=== PATIENT | female | born 1990 | race Caucasian/White ===

== ENCOUNTER → 2020-04-09 | Outpatient (CLI) | payer OTHER | LOC: LAB 07:35 | PROVIDERS: ATTEND Obstetrics & Gynecology | DX: Z34.90 Encounter for supervision of normal pregnancy, unspecified, unspecified trimester (principal); Z3A.00 Weeks of gestation of pregnancy not specified | CPT/HCPCS: 36415; 82950; 84443 ==

== ENCOUNTER → 2020-06-28 | Outpatient (CLI) | payer OTHER ==
[~2020-06-28] MED LIST: ACHD5005 PO; ASPI-999 PO; DCS100C PO; DIBU30OI TOP; IBUP-844 PO; LEVO50TA6 PO; PREN-142 PO
== END ==
LOC: LABNPT 08:49
PROVIDERS: ATTEND Obstetrics & Gynecology
DX: Z36.9 Encounter for antenatal screening, unspecified (principal); Z20.828 Contact with and (suspected) exposure to other viral communicable diseases
CPT/HCPCS: 87635

== ENCOUNTER 2020-07-01 20:25 | Inpatient (IN) | payer OTHER ==
[~2020-07-01] VITALS: Ht 172.7 cm; Wt 85.4 kg
--- NOTE | 2020-07-01 20:30 | NUR ---
ALEXANDER SANDERSON presented to unit via ambulation from home/ED, accompanied by , for INDUCTION. ALEXANDER SANDERSON weighed, gowned, voided, and to bed. EFHM and TOCO applied, VS taken. ALEXANDER SANDERSON oriented to bed controls, call light, TV, heat, and A/C controls.
[2020-07-01 20:50] VITALS: BP 136/81
[2020-07-01] MEDS ORDERED: LACTATED RINGERS 1,000 ML IV SCH (21:10)
[2020-07-01] MEDS ORDERED: MISOPROSTOL 100 MCG (CYTOTEC) TAB PO ONE (21:15)
[2020-07-01] MEDS ORDERED: TERBUTALINE INJ 1 MG/ML (BRETHINE) AMP SC PRN (21:15)
[2020-07-01] MEDS: CATHETER FLUSH 10 ML SYR IV SCH (21:21)
[2020-07-01 21:31] LABS: BASOPHILS % (AUTO) 0 % (0-10); EOSINOPHILS # (AUTO) 0.1 10^3/uL (0.0-0.3); EOSINOPHILS % (AUTO) 1 % (0-10); HEMATOCRIT 36 % (35-52); HEMOGLOBIN 12.2 g/dL (11.5-16.0); LYMPHOCYTES # (AUTO) 2.3 10^3/uL (1.0-4.0); LYMPHOCYTES % (AUTO) 19 % (12-44); MEAN CORPUSCULAR HEMOGLOBIN 33 pg (25-34); MEAN CORPUSCULAR HGB CONC 34 g/dL (32-36); MEAN CORPUSCULAR VOLUME 98 fL (80-99); MEAN PLATELET VOLUME 10.3 fL (9.0-12.2); MONOCYTES # (AUTO) 0.9 10^3/uL (0.0-1.0); MONOCYTES % (AUTO) 8 % (0-12); NEUTROPHILS # (AUTO) 8.3 10^3/uL (1.8-7.8); NEUTROPHILS % (AUTO) 70 % (42-75); PLATELET COUNT 194 10^3/uL (130-400); WHITE BLOOD COUNT 11.8 10^3/uL (4.3-11.0)
[2020-07-01 21:35] LABS: BILIRUBIN,URINE NEGATIVE (NEGATIVE); CLARITY,URINE CLEAR; COLOR,URINE YELLOW; GLUCOSE, URINE (UA) NEGATIVE (NEGATIVE); KETONES,URINE NEGATIVE (NEGATIVE); LEUKOCYTE ESTERASE ,URINE TRACE (NEGATIVE); NITRITE,URINE NEGATIVE (NEGATIVE); PROTEIN,URINE NEGATIVE (NEGATIVE)
[2020-07-01] MEDS ORDERED: ASPI-999 PO (21:48)
[2020-07-01] MEDS ORDERED: LEVO50TA6 PO (21:48)
[2020-07-01] MEDS ORDERED: PREN-142 PO (21:48)
[2020-07-01 21:59] LABS: BACTERIA,URINE MODERATE /HPF
[2020-07-01 22:01] VITALS: BP 122/70
[2020-07-01] MEDS: D5 LR IV SOLUTION 1,000 ML IV SCH (22:01)
[2020-07-01 23:04] VITALS: BP 142/86
[2020-07-02] VITALS (49 sets, daily range): BP systolic 98–155; BP diastolic 55–84
[2020-07-02] MEDS: MISOPROSTOL 100 MCG (CYTOTEC) TAB PO SCH ×2 (01:35→05:56)
[2020-07-02] MEDS: CATHETER FLUSH 10 ML SYR IV SCH (05:43)
[2020-07-02] MEDS: D5 LR IV SOLUTION 1,000 ML IV SCH (05:47)
[2020-07-02] MEDS ORDERED: OXYTOCIN PRE-MIX DRIP 500 ML IV SCH (05:55)
--- NOTE | 2020-07-02 07:34 | History & Physical-OB ---
OB - Chief Complaint & HPI Date/Time Date of Admission: Date of Admission: Jul 01, 2020 at 20:25 Date seen by a Provider: Jul 02, 2020 Time Seen by a Provider: 07:25 Chief Complaint/History OB-Reason for Admission/Chief: Induction of Labor Hx : 3 Hx Para: 1 Expected Date of Delivery: Jul 04, 2020 Gestational Age in Weeks: 39 Gestational Age in Days: 4 Admission Nurse Assessment Rev: Yes History of Labs O pos Antibody neg RI RPR NR HBsAg NR HIV NR GC neg GBS neg Allergies and Home Medications Allergies Coded Allergies: No Known Drug Allergies (Unverified , 07/01/20) Home Medications Aspirin 81 Mg Tab.chew, 81 MG PO DAILY, (Reported) Levothyroxine Sodium 50 Mcg Tablet, 50 MCG PO DAILY, (Reported) Vit No.124/Iron/FA 1 Each Tablet, 1 EACH PO DAILY, (Reported) Patient Home Medication List Home Medication List Reviewed: Yes OB - History Hx of Present Care: Yes Ultrasounds: Normal mid trimester US Obstetrical Complications: None Medical Complications: None Delivery History Adverse Rxn to Tranfusion: No Patient Past Medical History n/a Social History/Family History Recent Infectious Disease Expo: No Alcohol Use: Denies Use Recreational Drug Use: No Immunizations Hepatitis A: No Hepatitis B: Yes Date of Influenza Vaccine: May 07, 2020 OB - Admission Exam Physical Exam Vitals: Vital Signs 07/02/20 07/02/20 00:02 05:01 Temp 36.4 Pulse 62 Resp 18 B/P (MAP) 98/55 (69) O2 Delivery Room Air HEENT: NCAT Heart: Rhythm Normal Lungs: Clear Abdomen: Gravid Extremities: Normal Reflexes: Normal Cervical Dilatation: 2cm Effacement: 75% Station: -1 Membranes: Intact Heart Rate: 130's Accelerations: Accelerations Present Decelerations: No Decelerations Short Term Variability: Present Professional Services Specialist Variability: Average (6-25) Contractions on Admission: < 5 Minutes Apart Intensity: Mild Labs Laboratory Tests Test 07/01/20 20:35 07/01/20 20:45 Range/Units Urine Color YELLOW Urine Clarity CLEAR Urine pH 7.0 5-9 Urine Specific [place] 1.010 L 1.016-1.022 Urine Protein NEGATIVE NEGATIVE Urine Glucose (UA) NEGATIVE NEGATIVE Urine Ketones NEGATIVE NEGATIVE Urine Nitrite NEGATIVE NEGATIVE Urine Bilirubin NEGATIVE NEGATIVE Urine Urobilinogen 0.2 < = 1.0 MG/DL Urine Leukocyte Esterase TRACE H NEGATIVE Urine RBC (Auto) NEGATIVE NEGATIVE Urine RBC NONE /HPF Urine WBC 2-5 /HPF Urine Squamous Epithelial Cells 5-10 /HPF Urine Crystals NONE /LPF Urine Bacteria MODERATE H /HPF Urine Casts NONE /LPF Urine Mucus SMALL H /LPF Urine Culture Indicated YES White Blood Count 11.8 H 4.3-11.0 10^3/uL Red Blood Count 3.70 L 3.80-5.11 10^6/uL Hemoglobin 12.2 11.5-16.0 g/dL Hematocrit 36 35-52 % Mean Corpuscular Volume 98 80-99 fL Mean Corpuscular Hemoglobin 33 25-34 pg Mean Corpuscular Hemoglobin Concent 34 32-36 g/dL Red Cell Distribution Width 12.7 10.0-14.5 % Platelet Count 194 130-400 10^3/uL Mean Platelet Volume 10.3 9.0-12.2 fL Immature Granulocyte % (Auto) 1 % Neutrophils (%) (Auto) 70 42-75 % Lymphocytes (%) (Auto) 19 12-44 % Monocytes (%) (Auto) 8 0-12 % Eosinophils (%) (Auto) 1 0-10 % Basophils (%) (Auto) 0 0-10 % Neutrophils # (Auto) 8.3 H 1.8-7.8 10^3/uL Lymphocytes # (Auto) 2.3 1.0-4.0 10^3/uL Monocytes # (Auto) 0.9 0.0-1.0 10^3/uL Eosinophils # (Auto) 0.1 0.0-0.3 10^3/uL Basophils # (Auto) 0.0 0.0-0.1 10^3/uL Immature Granulocyte # (Auto) 0.2 H 0.0-0.1 10^3/uL OB - Assessment/Plan/Diagnosis Assessment Assessment: induction of labor Admission Dx 30 yo @ 39 weeks Induction of labor GBS neg Admission Status: Inpatient Order (span 2 midnights) Reason for Inpatient Admission: Induction of labor at term Plan Plan: Induction Induction Method: per Misoprostol Protocol KVNG CONDE DO Jul 02, 2020 07:34
--- NOTE | 2020-07-02 07:48 | NUR ---
Anesthesia notified of epidural request.
[2020-07-02] MEDS ORDERED: fentaNYL 2 mcg/ml BUPIVA 0.125 100 ML ONE (07:50)
[2020-07-02] MEDS ORDERED: BUPIVACAINE 0.25% 30 ML (SENSORCAINE) VIAL ONE (08:21)
[2020-07-02] MEDS ORDERED: LIDOCAINE PF 2% 5 ML (XYLOCAINE) VIAL ONE (08:21)
[2020-07-02] MEDS ORDERED: LACTATED RINGERS 1,000 ML IV SCH (08:30)
[2020-07-02] MEDS ORDERED: NALOXONE 0.4 MG/ML 1 ML (NARCAN) VIAL IV PRN ×2 (08:30)
[2020-07-02] MEDS ORDERED: diphenhydrAMINE 50 MG/ML INJ (BENADRYL) IV PRN (08:30)
[2020-07-02] MEDS ORDERED: METOCLOPRAMIDE INJ 10 MG/2 ML (REGLAN) IV PRN (08:30)
[2020-07-02] MEDS ORDERED: ONDANSETRON 4 MG/2 ML (SDV) Z0FRAN IV PRN (08:30)
[2020-07-02] MEDS ORDERED: EPIDURAL (fentaNYL 2 MCG/ML BUPIVA 0.125%)100 ML BAG EPI SCH (08:30)
[2020-07-02] MEDS: OXYTOCIN PRE-MIX DRIP 500 ML IV SCH ×2 (11:50→13:53)
[2020-07-02] MEDS ORDERED: TETANUS,DIPTH,PERTUSS P/F (BOOSTRIX) 0.5 ML VIAL IM ONE (12:15)
[2020-07-02] MEDS ORDERED: DIBUCAINE (NUPERCAINAL) 1% OINT 30 GM TOP PRN (12:15)
[2020-07-02] MEDS ORDERED: HYDROcodone/APAP 5 MG/325 MG (LORTAB) TAB PO PRN (12:15)
[2020-07-02] MEDS ORDERED: MEASLES,MUMPS,RUBELLA 1 EA INJ SQ ONE (12:15)
[2020-07-02] MEDS ORDERED: WITCH HAZEL(TUCKS) 40 EA JAR TOP PRN (12:15)
[2020-07-02] MEDS ORDERED: BENZOCAINE/MENTHOL (DERMOPLAST) 60 ML CAN TP PRN (12:15)
--- NOTE | 2020-07-02 12:26 | OB Labor & Delivery Record ---
L&D History Date of Service Date of Service: Jul 02, 2020 History Expected Date of Delivery: Jul 04, 2020 Gestational Age in Weeks: 39 Hx : 3 Hx Para: 1 Complications Events: Routine care Operative Indications (Cesarea: N/A-Vaginal Delivery Intrapartal Events: None L&D Stage1 Stage One Onset of Labor - Date: Jul 02, 2020 Monitors and Tracing Monitor Mode: External Heart Rate: 135 Station: -2 Vital Signs VS - Last 72 Hours, by Label 07/01/20 07/01/20 07/01/20 07/01/20 20:50 20:50 22:01 23:04 Temp 36.0 36.0 Pulse 76 76 69 69 Resp 18 18 18 18 B/P (MAP) 136/81 (99) 122/70 (87) 142/86 (104) Pulse Ox 100 100 O2 Delivery Room Air Room Air Room Air Room Air 07/02/20 07/02/20 07/02/20 07/02/20 00:02 01:03 02:00 03:03 Temp 36.4 Pulse 62 63 67 65 Resp 18 18 18 18 B/P (MAP) 131/71 (91) 119/65 (83) 119/74 (89) 100/59 (73) O2 Delivery Room Air Room Air Room Air Room Air 07/02/20 07/02/20 07/02/20 07/02/20 04:01 05:01 06:03 06:15 Temp 36.6 Pulse 71 62 62 55 Resp 18 18 18 18 B/P (MAP) 99/59 (72) 98/55 (69) 118/74 (89) 118/78 (91) O2 Delivery Room Air Room Air Room Air Room Air 07/02/20 07/02/20 07/02/20 07/02/20 06:30 06:45 07:00 07:30 Temp 36.5 Pulse 69 63 64 71 Resp 18 18 18 18 B/P (MAP) 119/82 (94) 123/83 (96) 126/83 (97) 133/83 (100) O2 Delivery Room Air Room Air Room Air Room Air 07/02/20 07/02/20 07/02/20 07/02/20 07:45 08:17 08:25 08:28 Pulse 59 62 71 71 Resp 18 18 18 18 B/P (MAP) 155/68 (97) 138/64 (88) 123/73 (90) 131/76 (94) Pulse Ox 98 98 O2 Delivery Room Air Room Air Room Air Room Air 07/02/20 07/02/20 07/02/20 07/02/20 08:31 08:33 08:36 08:39 Temp 36.5 Pulse 70 71 71 69 Resp 18 18 18 18 B/P (MAP) 129/75 (93) 130/75 (93) 122/67 (85) 124/65 (84) Pulse Ox 98 98 97 97 O2 Delivery Room Air Room Air Room Air Room Air 07/02/20 07/02/20 07/02/20 07/02/20 08:42 08:45 08:48 08:51 Pulse 69 71 64 65 Resp 18 18 18 18 B/P (MAP) 121/69 (86) 108/73 (85) 117/73 (88) 121/76 (91) Pulse Ox 97 97 97 97 O2 Delivery Room Air Room Air Room Air Room Air 07/02/20 07/02/20 07/02/20 07/02/20 08:54 08:57 09:00 09:03 Pulse 68 60 61 65 Resp 18 18 18 18 B/P (MAP) 116/72 (87) 120/71 (87) 121/71 (88) 118/75 (89) Pulse Ox 97 97 99 99 O2 Delivery Room Air Room Air Room Air Room Air Rupture of Membranes Amniotic Membrane Rupture Time: 0725 Progress/Notes Patient admitted for induction of labor electively, and was 1 cm dilatated. Misoprostol given x 2 PO doses overnight. She was found to be 2-3 cm this AM. AROM and Pitocin started. Epidural placed, patient progressed to complete and without any discomfort or knowing she was delivering. L&D Stage2 Monitors and Tracing Monitor Mode: External Heart Rate: 135 Monitor Accelerations: Uniform Monitor Decelerations: None Ux Visual Designer Variability: Average (6-10) Short Term Variability: Present Position: Right Occiput Anterior Presentation: Vertex Cord Descript/Complications Cord Vessel Description: 3 Vessels Complications Infant delivered with Brigitte LAMAR present, I arrived at time for repair and delivery of placenta Delivery Type Delivery Method: Spontaneous Vaginal Anterior Shoulder: Left Episiotomy/Perineal Laceration Laceraction(s)/Extensions: Yes Episiotomy Description: Perineal Extension/lac, 1st degree Degree (describe repair) 1st degree perineal laceration repaired using 3-0 rapide in usual fashion Condition of Delivery 1 minute Comment: 9 5 minute Comment: 9 Notes Live female weight pending Condition of Infant Condition of : Living Exam: No Observed Abnormalities Resuscitation Resuscitation: N/A - Spontaneous Resp L&D Stage3 Stage Three Stage III Date: Jul 02, 2020 Pictocin Pitocin Administration mu/min: 4 Pitocin ml/hr: 4 Pitocin Administration Comment: 30 mu Pitocin wide open at delivery of placenta Placenta Delivery Placenta Delivery: Spontaneous Delivery Summary Summary Estimated blood loss (mL): 350 Attending at delivery: Kvng Conde DO Condition of Delivery Examined: Cervix Examined, Uterus Explored Post Hemorrhage: No Condition of Mother stable Condition of Infant (s) stable KVNG CONDE DO Jul 02, 2020 12:26 pm
[2020-07-02] MEDS ORDERED: DIBU30OI TOP (12:37)
[2020-07-02] MEDS ORDERED: IBUP-844 PO (12:37)
[2020-07-02] MEDS ORDERED: ACHD5005 PO (12:37)
[2020-07-02] MEDS ORDERED: DCS100C PO (12:37)
[2020-07-02] MEDS ORDERED: IBUPROFEN 600 MG (MOTRIN) TAB PO ONE (12:55)
[2020-07-02] MEDS: IBUPROFEN 600 MG (MOTRIN) TAB PO SCH ×2 (12:58→19:33)
[2020-07-02] MEDS ORDERED: CATHETER FLUSH 10 ML SYR IV SCH (14:00)
--- NOTE | 2020-07-02 15:15 | NUR ---
Pericare performed. Fresh vpad and underwear on along with tucks and dermoplast to perineum. Pt assisted to standing position and to wheelchair. Pt denies urge to void at this time. Pt wheeled to PP room 310 via wheelchair accompanied by RN, S.O. and personal belongings. Infant to follow accompanied by nursery RN. Pt and S.O. oriented to room and call light. packet explained, dinner menu provided. Pt denies needs or concerns at this time.
[2020-07-02] MEDS: DOCUSATE SODIUM 100 MG (COLACE) CAP PO SCH (20:40)
[2020-07-03 01:05] VITALS: BP 123/73
[2020-07-03] MEDS: IBUPROFEN 600 MG (MOTRIN) TAB PO SCH ×2 (01:09→10:09)
[2020-07-03 05:10] VITALS: BP 115/69
[2020-07-03 05:40] LABS: BASOPHILS % (AUTO) 0 % (0-10); EOSINOPHILS # (AUTO) 0.1 10^3/uL (0.0-0.3); EOSINOPHILS % (AUTO) 1 % (0-10); HEMATOCRIT 35 % (35-52); HEMOGLOBIN 11.6 g/dL (11.5-16.0); LYMPHOCYTES # (AUTO) 2.3 10^3/uL (1.0-4.0); LYMPHOCYTES % (AUTO) 21 % (12-44); MEAN CORPUSCULAR HEMOGLOBIN 34 pg (25-34); MEAN CORPUSCULAR HGB CONC 34 g/dL (32-36); MEAN CORPUSCULAR VOLUME 101 fL (80-99); MEAN PLATELET VOLUME 10.1 fL (9.0-12.2); MONOCYTES # (AUTO) 0.8 10^3/uL (0.0-1.0); MONOCYTES % (AUTO) 7 % (0-12); NEUTROPHILS # (AUTO) 7.7 10^3/uL (1.8-7.8); NEUTROPHILS % (AUTO) 70 % (42-75); PLATELET COUNT 141 10^3/uL (130-400)
[2020-07-03] MEDS ORDERED: PRENATAL VITAMIN 1 EA TAB PO SCH (07:00)
--- NOTE | 2020-07-03 08:08 | Postpartum Progress Note ---
Note Note Day # 1 Subjective: Patient is without complaints. Ambulating, voiding. Tolerating a regular diet without nausea or vomiting. Normal lochia. Pain is well controlled with oral pain medications. Objective: Physical Exam: General - Alert and oriented, no apparent distress Abdomen - Soft, appropriately tender to palpation, non-distended, fundus firm at umbilicus Extremities - no edema, negative Mckenna's bilaterally Assessment: PPD 1 NVD Plan: Routine care. Encourage breast feeding. Encourage ambulation. Ferrous sulfate supplementation. Plan for discharge today Vitals - Labs Vital Signs - I&O Vital Signs Date Time Temp Pulse Resp B/P (MAP) Pulse Ox O2 Delivery O2 Flow Rate FiO2 07/03/20 05:10 36.6 68 18 115/69 (84) 98 Room Air 07/03/20 01:05 36.4 56 20 123/73 (90) 96 Room Air 07/02/20 20:52 36.1 58 18 144/84 (104) 97 Room Air 07/02/20 17:06 36.6 73 18 122/68 (86) 98 Room Air 07/02/20 13:17 66 18 117/69 (85) Room Air 07/02/20 13:02 63 18 118/78 (91) Room Air 07/02/20 12:47 36.5 66 18 120/80 (93) Room Air 07/02/20 12:32 63 18 113/75 (88) Room Air 07/02/20 12:17 56 18 121/76 (91) Room Air 07/02/20 12:02 57 18 124/70 (88) Room Air 07/02/20 11:47 62 18 124/65 (84) Room Air 07/02/20 11:32 74 18 131/78 (95) Room Air 07/02/20 11:05 61 18 111/67 (82) Room Air 07/02/20 10:50 64 18 113/65 (81) Room Air 07/02/20 10:35 63 18 111/60 (77) Room Air 07/02/20 10:20 62 18 118/61 (80) Room Air 07/02/20 10:05 36.3 69 18 117/59 (78) 98 Room Air 07/02/20 09:50 53 18 107/59 (75) 98 Room Air 07/02/20 09:30 61 18 114/66 (82) 98 Room Air 07/02/20 09:23 65 18 117/69 (85) 97 Room Air 07/02/20 09:18 62 18 112/63 (79) 97 Room Air 07/02/20 09:13 62 18 116/68 (84) 98 Room Air 07/02/20 09:06 72 18 121/75 (90) 100 Room Air 07/02/20 09:03 65 18 118/75 (89) 99 Room Air 07/02/20 09:00 61 18 121/71 (88) 99 Room Air 07/02/20 08:57 60 18 120/71 (87) 97 Room Air 07/02/20 08:54 68 18 116/72 (87) 97 Room Air 07/02/20 08:51 65 18 121/76 (91) 97 Room Air 07/02/20 08:48 64 18 117/73 (88) 97 Room Air 07/02/20 08:45 71 18 108/73 (85) 97 Room Air 07/02/20 08:42 69 18 121/69 (86) 97 Room Air 07/02/20 08:39 69 18 124/65 (84) 97 Room Air 07/02/20 08:36 71 18 122/67 (85) 97 Room Air 07/02/20 08:33 71 18 130/75 (93) 98 Room Air 07/02/20 08:31 36.5 70 18 129/75 (93) 98 Room Air 07/02/20 08:28 71 18 131/76 (94) 98 Room Air 07/02/20 08:25 71 18 123/73 (90) 98 Room Air 07/02/20 08:17 62 18 138/64 (88) Room Air I & O 07/03/20 07:00 Intake Total 2800 ml Balance 2800 ml Labs Laboratory Tests 07/03/20 05:25: White Blood Count 11.0, Red Blood Count 3.44L, Hemoglobin 11.6, Hematocrit 35, Mean Corpuscular Volume 101H, Mean Corpuscular Hemoglobin 34, Mean Corpuscular Hemoglobin Concent 34, Red Cell Distribution Width 12.6, Platelet Count 141, Mean Platelet Volume 10.1, Immature Granulocyte % (Auto) 1, Neutrophils (%) (Auto) 70, Lymphocytes (%) (Auto) 21, Monocytes (%) (Auto) 7, Eosinophils (%) (Auto) 1, Basophils (%) (Auto) 0, Neutrophils # (Auto) 7.7, Lymphocytes # (Auto) 2.3, Monocytes # (Auto) 0.8, Eosinophils # (Auto) 0.1, Basophils # (Auto) 0.0, Immature Granulocyte # (Auto) 0.1 Microbiology 07/01/20 Urine Culture - Final, Complete NO GROWTH KVNG CONDE DO Jul 03, 2020 08:08
[2020-07-03] MEDS ORDERED: FERROUS SULF 325 MG (IRON) TAB PO SCH (09:00)
--- NOTE | 2020-07-03 09:16 | Anesthesia-Regional Post-Op ---
Regional Patient Condition Mental Status: Alert, Oriented x3 Circulation: Same as Pre-Op Headache: Absent Sensation: Full Recovery Motor Block: Absent Post Op Complications Complications None Follow Up Care/Instructions Patient Instructions None needed. Anesthesia/Patient Condition Patient is doing well, no complaints, stable vital signs, no apparent adverse anesthesia problems. No complications reported per nursing. JACQUELYN FINN CRNA Jul 03, 2020 09:16
[2020-07-03] MEDS: DOCUSATE SODIUM 100 MG (COLACE) CAP PO SCH (10:09)
[2020-07-03 10:15] VITALS: BP 131/74
--- NOTE | 2020-07-03 10:15 | NUR ---
Dismissal instructions given, verbalizes understanding. reviewed follow up appointment and medications. signature page signed, placed on chart.
--- NOTE | 2020-07-03 12:45 | NUR ---
stork meal served.
--- NOTE | 2020-07-03 14:10 | NUR ---
pt ambulated to private vehicle with this RN, and @ side. secured in rear facing car seat. pt stable with no sx's of distress noted.
== END 2020-07-03 14:10 | disposition home or self-care (01) | DRG 807 ==
LOC: LDRP 20:25
PROVIDERS: ADMIT Obstetrics & Gynecology; ATTEND Obstetrics & Gynecology
PROC: 10E0XZZ Delivery of Products of Conception, External Approach (ICD-10-PCS; principal; 2020-07-02)
PROC: 0HQ9XZZ Repair Perineum Skin, External Approach (ICD-10-PCS; 2020-07-02)
DX: O70.0 First degree perineal laceration during delivery (principal); Z37.0 Single live birth; Z3A.39 39 weeks gestation of pregnancy
CPT/HCPCS: 36415; 81000; 85025; 86850; 86900; 86901; 87088

== ENCOUNTER → 2021-11-28 | Outpatient (CLI) | payer OTHER ==
[~2021-11-28] MED LIST changes: -DCS100C PO; +DOCU-239 PO
== END ==
LOC: LABNPT 10:55
PROVIDERS: ATTEND Nurse Practitioner Women's Health
DX: Z34.02 Encounter for supervision of normal first pregnancy, second trimester (principal); Z36.9 Encounter for antenatal screening, unspecified; Z3A.00 Weeks of gestation of pregnancy not specified
CPT/HCPCS: 82105; 82677; 84702; 86336

== ENCOUNTER → 2021-12-19 | Outpatient (CLI) | payer OTHER, MEDICAID ==
--- NOTE | 2021-12-19 13:09 | Diagnostic Imaging Report ---
INDICATION: , anatomic survey TECHNIQUE: Multiple real-time grayscale images were obtained over the gravid uterus. COMPARISON: None FINDINGS: There is a single live intrauterine gestation in variable presentation. The cervix measures 3.3 cm in length, with no evidence of funneling or endocervical fluid. The heart rate measures 144 BPM. The amniotic fluid appears subjectively normal. A vertical pocket seen measuring 3.5 cm. The placenta is anterior without evidence of previa. The profile is seen. The upper and lower spine is seen. The ventricles are seen and appear normal. The nose and lips are seen. The cerebellum is seen. The cisterna magna measures 7 to 8 mm. A four-chamber heart is seen. The right and left ventricular outflow tracks are seen. The stomach is seen. The kidneys are seen. The bilateral upper extremities are seen. The diaphragm is seen. The cord insertion is seen. The bladder is seen. 2 umbilical arteries are present. 2 lower extremities are present. Biometrical measurements are as follows: Biparietal 4.59 cm, age 20 weeks 0 days. Head circumference 17.49 cm, age 20 weeks 1 days. Abdominal circumference 15.44 cm, age 20 weeks 5 days. Femur length 3.51 cm, age 21 weeks 1 days. Sonographic estimate age: 20 weeks 4 days. Sonographic estimated date of delivery: 05/04/2022. Estimated Weight: 372 gm (+/- 55 gm). LMP percentile: 45%. heart rate: 144 beats per minute. number: 1 of 1. IMPRESSION: 1. Single live intrauterine gestation measuring at 20 weeks and 4 days which is within range of the clinical dates. 2. Anatomic survey. No abnormality is seen. The cisterna magna is at the upper limit of normal in size. Dictated by: Dictated on workstation # [id number]
== END ==
LOC: RAD 10:00
PROVIDERS: ATTEND Nurse Practitioner Women's Health
DX: Z34.02 Encounter for supervision of normal first pregnancy, second trimester (principal); Z3A.20 20 weeks gestation of pregnancy
CPT/HCPCS: 76805

== ENCOUNTER 2022-04-23 17:38 | Inpatient (IN) | payer OTHER, MEDICAID ==
[2022-04-23] VITALS (10 sets, daily range): BP systolic 127–144; BP diastolic 77–92
[~2022-04-23] VITALS: Ht 172.7 cm; Wt 85.5 kg
[2022-04-23] MEDS ORDERED: CATHETER FLUSH 10 ML SYR IV PRN (18:00)
[2022-04-23] MEDS ORDERED: NS IV 1000 ML 1,000 ML IV SCH (18:00)
[2022-04-23] MEDS ORDERED: LIDOCAINE/EPI 2% 1:200,00 (XYLOCAINE) 10 ML VIAL INJ PRN (18:00)
[2022-04-23] MEDS ORDERED: NS IV 1000 ML 1,000 ML ONE (18:06)
[2022-04-23 18:33] LABS: BASOPHILS % (AUTO) 0 % (0-10); EOSINOPHILS # (AUTO) 0.1 10^3/uL (0.0-0.3); EOSINOPHILS % (AUTO) 1 % (0-10); HEMATOCRIT 32 % (35-52); HEMOGLOBIN 10.5 g/dL (11.5-16.0); LYMPHOCYTES # (AUTO) 2.4 10^3/uL (1.0-4.0); LYMPHOCYTES % (AUTO) 20 % (12-44); MEAN CORPUSCULAR HEMOGLOBIN 31 pg (25-34); MEAN CORPUSCULAR HGB CONC 33 g/dL (32-36); MEAN CORPUSCULAR VOLUME 94 fL (80-99); MEAN PLATELET VOLUME 10.4 fL (9.0-12.2); MONOCYTES # (AUTO) 0.7 10^3/uL (0.0-1.0); MONOCYTES % (AUTO) 6 % (0-12); NEUTROPHILS # (AUTO) 8.3 10^3/uL (1.8-7.8); NEUTROPHILS % (AUTO) 71 % (42-75); PLATELET COUNT 202 10^3/uL (130-400); WHITE BLOOD COUNT 11.7 10^3/uL (4.3-11.0)
[2022-04-23 18:51] LABS: URINE CREATININE FOR RATIO 61 MG/DL (30-125); URINE PROTEIN FOR RATIO ONLY < 6 MG/DL (6-12)
[2022-04-23 18:55] LABS: ALBUMIN 3.3 GM/DL (3.2-4.5); BILIRUBIN,TOTAL 0.2 MG/DL (0.1-1.0); CREATININE SERUM 0.9 MG/DL (0.60-1.30); POTASSIUM 3.8 MMOL/L (3.6-5.0); TOTAL PROTEIN 6.5 GM/DL (6.4-8.2); URIC ACID 5.5 MG/DL (2.6-7.2)
[2022-04-23] MEDS: D5 LR IV SOLUTION 1,000 ML IV SCH (22:35)
[2022-04-24] VITALS (14 sets, daily range): BP systolic 122–154; BP diastolic 68–92
[2022-04-24] MEDS: D5 LR IV SOLUTION 1,000 ML IV SCH (06:12)
--- NOTE | 2022-04-24 06:59 | History & Physical-OB ---
JORDAN HOWARD 04/24/22 0659: OB - Chief Complaint & HPI Date/Time Date of Admission: Date of Admission: Apr 23, 2022 at 17:38 Date seen by a Provider: Apr 24, 2022 Time Seen by a Provider: 06:53 Chief Complaint/History OB-Reason for Admission/Chief: Induction of Labor Hx : 4 Hx Para: 2 Expected Date of Delivery: May 03, 2022 Gestational Age in Weeks: 38 Gestational Age in Days: 3 History of Labs 32 yo female @38.5 weeks here for induction of labor Rubella non immune O+ HIV- GBS - VDRL- HbsAg - Allergies and Home Medications Allergies Coded Allergies: No Known Drug Allergies (Unverified , 07/01/20) Patient Home Medication List Home Medication List Reviewed: Yes Levothyroxine Sodium (Levothyroxine Sodium) 50 Mcg Tablet, 50 MCG PO DAILY, (Reported) Entered as Reported by: MARIAMA SHERIDAN on 07/01/202147 Last Action: Last Taken Edited Discontinued Medications Dibucaine (Dibucaine) 30 Gm Oint, 0 GM TOP UD PRN for PAIN- SEE INSTRUCTIONS Discontinued Reason: No Longer Taking Prescribed by: KVNG CONDE on 07/02/201236 Last Action: Discontinued Docusate Sodium (Dok) 100 Mg Capsule, 100 MG PO BID Discontinued Reason: No Longer Taking Prescribed by: KVNG CONDE on 07/02/201236 Last Action: Discontinued Hydrocodone/Acetaminophen (Hydrocodone-Acetamin 5-325 mg) 1 Each Tablet, 1 TAB PO Q4H PRN for PAIN-MODERATE (5-7) Discontinued Reason: No Longer Taking Prescribed by: KVNG CONDE on 07/02/201236 Last Action: Discontinued Ibuprofen (Ibu) 600 Mg Tablet, 600 MG PO Q6HR Discontinued Reason: No Longer Taking Prescribed by: KVNG CONDE on 07/02/201236 Last Action: Discontinued Vit No.124/Iron/FA ( Vitamin Tablet) 1 Each Tablet, 1 EACH PO DAILY, (Reported) Discontinued Reason: No Longer Taking Entered as Reported by: MARIAMA SHERIDAN on 07/01/202147 Last Action: Discontinued OB - History Hx of Present Care: Yes Obstetrical Complications: None Medical Complications: None Delivery History Adverse Rxn to Tranfusion: No Patient Past Medical History n/a Immunizations Hepatitis A: No Hepatitis B: Yes OB - Admission Exam Physical Exam Vitals: Vital Signs 04/23/22 04/24/22 04/24/22 18:06 01:00 04:05 Temp 37.4 Pulse 67 Resp 18 B/P (MAP) 128/84 (99) Pulse Ox 100 O2 Delivery Room Air Abdomen: Gravid Extremities: Normal Cervical Dilatation: 3cm Heart Rate: 140's Labs Laboratory Tests Test 04/23/22 18:00 04/23/22 18:20 Range/Units Urine Protein < 6 L 6-12 MG/DL Urine Creatinine 61 30-125 MG/DL Urine Protein/Creatinine Ratio White Blood Count 11.7 H 4.3-11.0 10^3/uL Red Blood Count 3.36 L 3.80-5.11 10^6/uL Hemoglobin 10.5 L 11.5-16.0 g/dL Hematocrit 32 L 35-52 % Mean Corpuscular Volume 94 80-99 fL Mean Corpuscular Hemoglobin 31 25-34 pg Mean Corpuscular Hemoglobin Concent 33 32-36 g/dL Red Cell Distribution Width 12.0 10.0-14.5 % Platelet Count 202 130-400 10^3/uL Mean Platelet Volume 10.4 9.0-12.2 fL Immature Granulocyte % (Auto) 1 % Neutrophils (%) (Auto) 71 42-75 % Lymphocytes (%) (Auto) 20 12-44 % Monocytes (%) (Auto) 6 0-12 % Eosinophils (%) (Auto) 1 0-10 % Basophils (%) (Auto) 0 0-10 % Neutrophils # (Auto) 8.3 H 1.8-7.8 10^3/uL Lymphocytes # (Auto) 2.4 1.0-4.0 10^3/uL Monocytes # (Auto) 0.7 0.0-1.0 10^3/uL Eosinophils # (Auto) 0.1 0.0-0.3 10^3/uL Basophils # (Auto) 0.0 0.0-0.1 10^3/uL Immature Granulocyte # (Auto) 0.2 H 0.0-0.1 10^3/uL Sodium Level 138 135-145 MMOL/L Potassium Level 3.8 3.6-5.0 MMOL/L Chloride Level 105 98-107 MMOL/L Carbon Dioxide Level 20 L 21-32 MMOL/L Anion Gap 13 5-14 MMOL/L Blood Urea Nitrogen 15 7-18 MG/DL Creatinine 0.90 0.60-1.30 MG/DL Estimat Glomerular Filtration Rate 88 BUN/Creatinine Ratio 17 Glucose Level 105 70-105 MG/DL Uric Acid 5.5 2.6-7.2 MG/DL Calcium Level 9.0 8.5-10.1 MG/DL Corrected Calcium 9.6 8.5-10.1 MG/DL Total Bilirubin 0.2 0.1-1.0 MG/DL Aspartate Amino Transf (AST/SGOT) 14 5-34 U/L Alanine Aminotransferase (ALT/SGPT) 13 0-55 U/L Alkaline Phosphatase 118 40-136 U/L Total Protein 6.5 6.4-8.2 GM/DL Albumin 3.3 3.2-4.5 GM/DL OB - Assessment/Plan/Diagnosis Assessment Assessment: induction of labor Admission Dx 32 yo female @38.5 weeks here for induction of labor Admission Status: Inpatient Order (span 2 midnights) Reason for Inpatient Admission: Induction of labor Plan Plan: Induction Induction Method: per Misoprostol Protocol KVNG CONDE DO 04/24/22 0732: Allergies and Home Medications Allergies Coded Allergies: No Known Drug Allergies (Unverified , 07/01/20) Patient Home Medication List Levothyroxine Sodium (Levothyroxine Sodium) 50 Mcg Tablet, 50 MCG PO DAILY, (Reported) Entered as Reported by: MARIAMA SHERIDAN on 07/01/20 9600 Last Action: Last Taken Edited Discontinued Medications Dibucaine (Dibucaine) 30 Gm Oint, 0 GM TOP UD PRN for PAIN- SEE INSTRUCTIONS Discontinued Reason: No Longer Taking Prescribed by: KVNG CONDE on 07/02/20 1237 Last Action: Discontinued Docusate Sodium (Dok) 100 Mg Capsule, 100 MG PO BID Discontinued Reason: No Longer Taking Prescribed by: KVNG CONDE on 07/02/20 1237 Last Action: Discontinued Hydrocodone/Acetaminophen (Hydrocodone-Acetamin 5-325 mg) 1 Each Tablet, 1 TAB PO Q4H PRN for PAIN-MODERATE (5-7) Discontinued Reason: No Longer Taking Prescribed by: KVNG CONDE on 07/02/20 1237 Last Action: Discontinued Ibuprofen (Ibu) 600 Mg Tablet, 600 MG PO Q6HR Discontinued Reason: No Longer Taking Prescribed by: KVNG CONDE on 07/02/20 1237 Last Action: Discontinued Vit No.124/Iron/FA ( Vitamin Tablet) 1 Each Tablet, 1 EACH PO DAILY, (Reported) Discontinued Reason: No Longer Taking Entered as Reported by: MARIAMA SHERIDAN on 07/01/20 2598 Last Action: Discontinued OB - Assessment/Plan/Diagnosis Plan Other Plan Verification and Attestation of Medical Student E/M Service A medical student performed and documented this service in my presence. I reviewed and verified all information documented by the medical student and made modifications to such information, when appropriate. I personally performed the physical exam and medical decision making. Kvng Conde, Apr 24, 2022,07:32 JORDAN HOWARD Apr 24, 2022 06:59 KVNG CONDE DO Apr 24, 2022 07:32
[2022-04-24] MEDS ORDERED: OXYTOCIN PRE-MIX DRIP 500 ML IV ONE (10:26)
[2022-04-24] MEDS ORDERED: OXYTOCIN PRE-MIX DRIP 500 ML IV SCH (10:30)
[2022-04-24] MEDS ORDERED: fentaNYL 2 mcg/ml BUPIVA 0.125 100 ML ONE (11:02)
[2022-04-24] MEDS ORDERED: LACTATED RINGERS 1,000 ML IV ONE (11:02)
[2022-04-24] MEDS ORDERED: diphenhydrAMINE 50 MG/ML INJ (BENADRYL) IV PRN (12:00)
[2022-04-24] MEDS ORDERED: METOCLOPRAMIDE INJ 10 MG/2 ML (REGLAN) IV PRN (12:00)
[2022-04-24] MEDS ORDERED: fentaNYL 2 mcg/ml BUPIVA 0.125 100 ML EPI SCH (12:00)
[2022-04-24] MEDS ORDERED: ONDANSETRON 4 MG/2 ML (SDV) Z0FRAN IV PRN (12:00)
[2022-04-24] MEDS ORDERED: NALOXONE 0.4 MG/ML 1 ML (NARCAN) VIAL IV PRN ×3 (12:00→12:45)
[2022-04-24] MEDS ORDERED: LACTATED RINGERS 1,000 ML IV SCH (12:00)
[2022-04-24] MEDS ORDERED: BUPIVACAINE 0.25% 30 ML (SENSORCAINE) VIAL ONE (12:04)
[2022-04-24] MEDS ORDERED: fentaNYL INJ 100 MCG/2 ML AMP ONE (12:04)
[2022-04-24] MEDS ORDERED: MEASLES,MUMPS,RUBELLA 1 EA INJ SQ ONE (12:45)
[2022-04-24] MEDS ORDERED: BENZOCAINE/MENTHOL (DERMOPLAST) 56 ML CAN TP PRN (12:45)
[2022-04-24] MEDS ORDERED: TETANUS,DIPTH,PERTUSS P/F (BOOSTRIX) 0.5 ML VIAL IM ONE (12:45)
[2022-04-24] MEDS ORDERED: WITCH HAZEL(TUCKS) 40 EA JAR TOP PRN (12:45)
[2022-04-24] MEDS ORDERED: DIBUCAINE 1% OINTMENT 30 GM TUBE TOP PRN (12:45)
[2022-04-24] MEDS ORDERED: BENZ78AE5 TP (12:46)
[2022-04-24] MEDS ORDERED: IBUP-1773 PO (12:46)
--- NOTE | 2022-04-24 12:46 | Discharge Inst-Women's Service ---
Discharge Inst-Women's Serv Depart Medication/Instructions New, Converted or Re-Newed RX: Transmitted to Pharmacy Final Diagnosis PPD 1 NVD Problems Reviewed?: Yes Consults/Follow Up Additional Follow Up: Yes Orders/Referrals Dr. Conde in 6 weeks Activity Activity: Activity as Tolerated Driving Instructions: No Driving for 1 Week NO SMOKING: NO SMOKING Nothing Inside Vagina: No Douching, No [place], No Tampons Diet Discharge Diet: No Restrictions Symptoms to Report to : Bleeding Excessive, Pain Increased, Fever Over 101 Degrees F, Vaginal Bleeding Increase, Questions/Concerns For Any Problems or Questions: Contact Your Physician KVNG CONDE DO Apr 24, 2022 12:45
--- NOTE | 2022-04-24 12:48 | OB Labor & Delivery Record ---
L&D History Date of Service Date of Service: Apr 24, 2022 History Expected Date of Delivery: May 03, 2022 Gestational Age in Weeks: 38 Hx : 4 Hx Para: 2 Complications Events: Routine care Operative Indications (Cesarea: N/A-Vaginal Delivery Intrapartal Events: None L&D Stage1 Stage One Onset of Labor - Date: Apr 24, 2022 Monitors and Tracing Monitor Mode: External Heart Rate: 135 Monitor Accelerations: Uniform Monitor Decelerations: None Station: -1 Decal Applier Variability: Average (6-10) Short Term Variability: Present Presentation: Vertex Vital Signs VS - Last 72 Hours, by Label 04/23/22 04/23/22 04/23/22 04/23/22 18:01 18:06 18:27 18:54 Temp 37.0 37.0 Pulse 87 87 90 89 Resp 18 16 18 18 B/P (MAP) 136/82 (100) 133/80 (97) 133/80 (97) Pulse Ox 100 O2 Delivery Room Air 04/23/22 04/23/22 04/23/22 04/23/22 19:09 19:39 19:57 20:58 Temp 37.0 Pulse 78 74 89 71 Resp 18 18 18 18 B/P (MAP) 133/81 (98) 137/77 (97) 144/92 (109) 138/83 (101) O2 Delivery Room Air Room Air Room Air 04/23/22 04/23/22 04/24/22 04/24/22 22:00 23:00 00:00 01:00 Temp 37.4 Pulse 71 63 67 60 Resp 18 18 18 18 B/P (MAP) 136/84 (101) 127/80 (96) 124/68 (86) 122/87 (99) O2 Delivery Room Air Room Air Room Air Room Air 04/24/22 04/24/22 04/24/22 04/24/22 02:00 03:00 04:05 06:15 Temp 37.4 Pulse 64 69 67 71 Resp 18 18 18 18 B/P (MAP) 135/80 (98) 131/74 (93) 128/84 (99) 135/86 (102) O2 Delivery Room Air Room Air Room Air Room Air 04/24/22 04/24/22 04/24/22 04/24/22 07:31 08:45 10:30 12:01 Temp 37.4 37.0 36.5 37.2 Pulse 71 62 79 63 Resp 18 18 18 20 B/P (MAP) 135/86 (102) 129/81 (97) 154/92 (112) 144/89 (107) Pulse Ox 100 98 O2 Delivery Room Air Room Air Rupture of Membranes Spontaneous Ruture of Membrane: No Amniotic Membrane Rupture Time: 721 Amniotic Membrane Fluid Desc.: Clear Vaginal Bleeding Description: Normal Show Progress/Notes Patient admitted for IOL due to GHTN. Misoprostol given overnight. AROM performed this am followed by pitocin augmentation. She rapidly progressed to complete and + 2 station after epidural placement. L&D Stage2 Stage Two Stage II Date: Apr 24, 2022 Monitors and Tracing Monitor Mode: External Heart Rate: 135 Monitor Accelerations: Uniform Monitor Decelerations: Variable Decal Applier Variability: Average (6-10) Short Term Variability: Present Position: Right Occiput Anterior Presentation: Vertex Cord Descript/Complications Cord Vessel Description: 3 Vessels Delivery Type Infant Delivery Method: Spontaneous Vaginal Anterior Shoulder: Left Episiotomy/Perineal Laceration Laceraction(s)/Extensions: No Condition of Infant Delivery 1 minute Comment: 9 5 minute Comment: 9 Notes Live female infant weight pending. Condition of Infant Condition of : Living Exam: No Observed Abnormalities Resuscitation Resuscitation: N/A - Spontaneous Resp L&D Stage3 Stage Three Stage III Date: Apr 24, 2022 Pictocin Pitocin Administration Comment: 30 mu wide open after delivery of placenta Placenta Delivery Placenta Delivery: Spontaneous Delivery Summary Summary Estimated blood loss (mL): 200 Attending at delivery: Kvng Conde DO Condition of Delivery Examined: Cervix Examined, Uterus Explored Post Hemorrhage: No Condition of Mother stable Condition of (s) stable KVNG CONDE DO Apr 24, 2022 12:48
[2022-04-24] MEDS: OXYTOCIN PRE-MIX DRIP 500 ML IV SCH ×2 (13:15→15:34)
[2022-04-24] MEDS ORDERED: CATHETER FLUSH 10 ML SYR IV SCH (14:00)
[2022-04-24] MEDS ORDERED: IBUPROFEN 600 MG (MOTRIN) TAB PO SCH (16:00)
[2022-04-24] MEDS ORDERED: IBUPROFEN 600 MG (MOTRIN) TAB PO PRN (17:15)
[2022-04-24] MEDS ORDERED: DOCUSATE SODIUM 100 MG (COLACE) CAP PO SCH (21:00)
[2022-04-25 01:57] VITALS: BP 128/92
[2022-04-25 05:38] LABS: BASOPHILS % (AUTO) 0 % (0-10); EOSINOPHILS # (AUTO) 0.2 10^3/uL (0.0-0.3); EOSINOPHILS % (AUTO) 1 % (0-10); HEMATOCRIT 32 % (35-52); HEMOGLOBIN 10.6 g/dL (11.5-16.0); LYMPHOCYTES # (AUTO) 2.8 10^3/uL (1.0-4.0); LYMPHOCYTES % (AUTO) 22 % (12-44); MEAN CORPUSCULAR HEMOGLOBIN 31 pg (25-34); MEAN CORPUSCULAR HGB CONC 34 g/dL (32-36); MEAN CORPUSCULAR VOLUME 93 fL (80-99); MEAN PLATELET VOLUME 9.9 fL (9.0-12.2); MONOCYTES % (AUTO) 8 % (0-12); NEUTROPHILS # (AUTO) 8.4 10^3/uL (1.8-7.8); NEUTROPHILS % (AUTO) 67 % (42-75); PLATELET COUNT 177 10^3/uL (130-400); WHITE BLOOD COUNT 12.6 10^3/uL (4.3-11.0)
[2022-04-25] MEDS ORDERED: PRENATAL VITAMIN 1 EA TAB PO SCH (07:00)
--- NOTE | 2022-04-25 08:19 | Anesthesia-Regional Post-Op ---
Regional Patient Condition Mental Status: Alert, Oriented x3 Circulation: Same as Pre-Op Headache: Absent Sensation: Full Recovery Motor Block: Absent Post Op Complications Complications None Follow Up Care/Instructions Patient Instructions None needed. Anesthesia/Patient Condition Patient is doing well, no complaints, stable vital signs, no apparent adverse anesthesia problems. No complications reported per nursing. DAYNA JACOBO CRNA Apr 25, 2022 08:19
[2022-04-25] MEDS ORDERED: MEASLES,MUMPS,RUBELLA 1 EA INJ ONE (08:54)
[2022-04-25] MEDS ORDERED: FERROUS SULF 325 MG (IRON) TAB PO SCH (09:00)
[2022-04-25 09:05] VITALS: BP 125/75
--- NOTE | 2022-04-25 10:25 | Postpartum Progress Note ---
Note Note Day # 1 Subjective: Patient is without complaints. Ambulating, voiding. Tolerating a regular diet without nausea or vomiting. Normal lochia. Pain is well controlled with oral pain medications. Physical Exam: General - Alert and oriented, no apparent distress Abdomen - Soft, appropriately tender to palpation, non-distended, fundus firm at umbilicus Extremities - no edema, negative Mckenna's bilaterally Assessment: Post- day # 1, status post vaginal delivery. Recovering well, hemodynamically stable Acute blood loss anemia Plan: Routine care. Encourage breast feeding. Encourage ambulation. Ferrous sulfate supplementation. Plan for discharge today Vitals - Labs Vital Signs - I&O Vital Signs Date Time Temp Pulse Resp B/P (MAP) Pulse Ox O2 Delivery O2 Flow Rate FiO2 04/25/22 09:05 36.1 64 18 125/75 (92) 97 Room Air 04/25/22 01:57 36.3 55 18 128/92 (104) 98 Room Air 04/24/22 20:05 36.4 62 18 138/78 (98) 100 Room Air 04/24/22 15:00 36.9 65 18 134/68 (90) 99 Room Air 04/24/22 12:45 36.9 76 18 134/71 (92) 99 Room Air 04/24/22 12:30 37.2 63 20 144/89 (107) 98 Room Air 04/24/22 12:01 37.2 63 20 144/89 (107) 98 Room Air 04/24/22 10:30 36.5 79 18 154/92 (112) I & O 04/25/22 06:59 Intake Total 1000 ml Balance 1000 ml Labs Laboratory Tests 04/25/22 05:20: White Blood Count 12.6H, Red Blood Count 3.39L, Hemoglobin 10.6L, Hematocrit 32L , Mean Corpuscular Volume 93, Mean Corpuscular Hemoglobin 31, Mean Corpuscular Hemoglobin Concent 34, Red Cell Distribution Width 12.1, Platelet Count 177, Mean Platelet Volume 9.9, Immature Granulocyte % (Auto) 2, Neutrophils (%) (Auto) 67, Lymphocytes (%) (Auto) 22, Monocytes (%) (Auto) 8, Eosinophils (%) (Auto) 1, Basophils (%) (Auto) 0, Neutrophils # (Auto) 8.4H, Lymphocytes # (Auto) 2.8, Monocytes # (Auto) 1.0, Eosinophils # (Auto) 0.2, Basophils # (Auto) 0.0, Immature Granulocyte # (Auto) 0.2H FLORIN REN APRN Apr 25, 2022 10:25
== END 2022-04-25 15:45 | disposition home or self-care (01) | DRG 806 ==
LOC: LDRP 17:38
PROVIDERS: ADMIT Obstetrics & Gynecology; ATTEND Obstetrics & Gynecology
PROC: 10E0XZZ Delivery of Products of Conception, External Approach (ICD-10-PCS; principal; 2022-04-23)
PROC: 3E0DXGC Introduction of Other Therapeutic Substance into Mouth and Pharynx, External Approach (ICD-10-PCS; 2022-04-24)
DX: O13.4 Gestational [pregnancy-induced] hypertension without significant proteinuria, complicating childbirth (principal); D62 Acute posthemorrhagic anemia; Z37.0 Single live birth; O99.03 Anemia complicating the puerperium; Z3A.38 38 weeks gestation of pregnancy
CPT/HCPCS: 36415; 80053; 82570; 84156; 84550; 85025; 86850; 86900; 86901; 90707